=== PATIENT | female | born 1965 ===

== ENCOUNTER 2025-04-13 09:58 | Outpatient (CLI) | payer OTHER ==
[~2025-04-13 09:58] MED LIST: KETO10TA2 PO; TYLENOL-CODEINE1 TAB PO
== END 2025-04-13 10:03 | disposition home or self-care (01) ==
LOC: TOM 09:58
PROVIDERS: ATTEND Internal Medicine Gastroenterology
DX: C18.9 Malignant neoplasm of colon, unspecified (principal); R19.6 Halitosis; K57.92 Diverticulitis of intestine, part unspecified, without perforation or abscess without bleeding